=== PATIENT | male | born 1955 | race Caucasian/White ===

== ENCOUNTER 2017-12-24 07:21 | Day surgery (SDC) | payer OTHER ==
[~2017-12-24 07:21] MED LIST: TAMS0.4C PO; TENCON 50-3251 EACH PO; VASOTEC10 MG PO
== END 2017-12-24 17:45 | disposition home or self-care (01) ==
LOC: CIR.AMB 07:21
DX: M24.831 Other specific joint derangements of right wrist, not elsewhere classified (principal)